=== PATIENT | male | born 1995 | race Caucasian/White ===

== ENCOUNTER 2018-09-13 20:13 | Emergency (ER) | END 2018-09-13 22:18 | disposition home or self-care (01) ==

== ENCOUNTER 2018-11-23 21:08 | Emergency (ER) | payer OTHER ==
[~2018-11-23] VITALS: Ht 167.6 cm; Wt 58.2 kg
[~2018-11-23 21:08] MED LIST: CETI10CA PO; CYCL10TA7 PO; FLUT9.9S NASAL; IBUP800T48 PO; NPH10OT LEFT EAR
[2018-11-23 21:10] VITALS: Ht 167.6 cm; Wt 58.2 kg
--- NOTE | 2018-11-24 01:03 | ERD ---
ER Documentation Chief Complaint Chief Complaint cough x 4 days HPI 23-year-old male presents here to emergency department for complaints of cough for 4 days, cough with whitish phlegm, has been complaining of chest pain when coughing. Patient does not have any fever or chills. Patient denies any sick contacts. Patient denies any blood in the Phlegm. Patient does not have any sick contacts. ROS All systems reviewed and are negative except as per history of present illness. Medications Home Meds Active Scripts Fluticasone Propionate (Flonase Allergy Relief) 9.9 Ml [place].susp, 2 SPRAY NASAL DAILY, #1 BOTTLE TO EACH NOSTRIL Prov:GRECIA TORO PA-C 09/13/18 Cetirizine Hcl* (Zyrtec*) 10 Mg Capsule, 10 MG PO DAILY, #14 TAB.CHEW Prov:GRECIA TORO PA-C 09/13/18 Neomycin/Polymyxin/Hydrocort* (Cortisporin* Otic) 10 Ml Susp, 4 DROP LEFT EAR QID for 7 Days, EA Prov:GRECIA TORO PA-C 09/13/18 Cyclobenzaprine Hcl* (Cyclobenzaprine Hcl*) 10 Mg Tablet, 10 MG PO TID, #15 TAB Prov:LUÍS BAUER PA-C 03/24/16 Ibuprofen* (Motrin*) 800 Mg Tab, 800 MG PO Q6, #30 TAB Prov:LUÍS BAUER PA-C 03/24/16 Allergies Allergies: Coded Allergies: No Known Allergy (Unverified , 10/29/14) PMhx/Soc Medical and Surgical Hx: pt denies Medical Hx, pt denies Surgical Hx History of Surgery: No Anesthesia Reaction: No Hx Neurological Disorder: No Hx Respiratory Disorders: No Hx Cardiac Disorders: No Hx Psychiatric Problems: No Hx Miscellaneous Medical Probl: No Hx Alcohol Use: No Hx Substance Use: No Hx Tobacco Use: No FmHx Family History: No diabetes, No coronary disease, No other Physical Exam Vitals Vital Signs Date Temp Pulse Resp B/P (MAP) Pulse Ox O2 O2 Flow FiO2 Time Delivery Rate 11/23/18 97.3 78 18 136/70 97 21:10 (92) Physical Exam GENERAL: The patient is well developed and appropriate for usual state of health, in no apparent distress. CHEST: Clear to auscultation bilaterally. There are no rales, wheezes or rhonchi. HEART: Regular rate and rhythm. No murmurs, clicks, rubs or gallops. No S3 or S4. ABDOMEN: Soft, nontender and nondistended. Good bowel sounds. No rebound or guarding. No gross peritonitis. No gross organomegaly or masses. No Frost sign or McBurney point tenderness. BACK: No midline or flank tenderness. EXTREMITIES: Equal pulses bilaterally. There is no peripheral clubbing, cya nosis or edema. No focal swelling or erythema. Full range of motion. Grossly neurovascularly intact. NEURO: Alert and oriented. Cranial nerves 2-12 intact. Motor strength in all 4 extremities with 5/5 strength. Sensation grossly intact. Normal speech and gait. SKIN: There is no apparent rash or petechia. The skin is warm and dry. HEMATOLOGIC AND LYMPHATIC: There is no evidence of excessive bruising or lymphedema. No gross cervical, axillary, or inguinal lymphadenopathy. Results 24 hrs PROCEDURE: Chest. CLINICAL INDICATION: Cough. TECHNIQUE: Single frontal view of the chest was obtained. COMPARISON: None. FINDINGS: The cardiac silhouette is within normal limits. The aortic arch is unremarkable. There is no focal consolidation, vascular congestion or pleural effusion. There is no pneumothorax. IMPRESSION: No evidence for active cardiopulmonary disease. .Alexis Martin MD, MD Date Time Electronically viewed and signed by .Alexis Martin MD, on 11/24/2018 02:02 .T/ CC: ANNIKA WELLER NP [phone] Procedures/MDM Medical Decision Making: Patient symptoms are most likely consistent with acute bronchitis, which viral in origin. There is low suspicion for Pneumonia at this time since patients lungs sounds are clear, patient O2 saturation is normal and patient doesnt show any respiratory distress. Patients chest xray doesnt show infiltrates or any other cardiopulmonary emergencies at this time. There is low suspicion for other cardiopulmonary emergencies at this time such as CHF, Pulmonary Embolism, Pneumothorax, Aortic Aneurysm or any other cardiopulmonary emergencies at this time. There is low suspicion for sepsis. Patient appears well and is hemodynamically stable. Fever is controlled with medicines. Disposition: Home. Condition: Stable Prescriptions: Tessalon Perles Zyrtec ibuprofen Tylenol Instructions: Patient is advised to take medications as prescribed. Patient is advised to rest. Patient advised to increase fluid intake, do humidifier at home and if possible, do salt water gargles. Patient is advised that if symptoms are worse, shortness of breath, uncontrolled fever, stridor, vomiting, worst signs and symptoms to return to emergency department immediately. Otherwise, patient is advised to follow up with primary doctor in 5-7 days. Disclaimer: Inadvertent spelling and grammatical errors are likely due to EHR/dictation software use and do not reflect on the overall quality of patient care. Also, please note that the electronic time recorded on this note does not necessarily reflect the actual time of the patient encounter. Departure Diagnosis: Primary Impression: Acute bronchitis Bronchitis organism: unspecified organism Qualified Codes: J20.9 - Acute bronchitis, unspecified Condition: Stable Patient Instructions: Bronchitis, No Antibiotic (Adult) Additional Instructions: Patient is advised to take medications as prescribed. Patient is advised to rest. Patient advised to increase fluid intake, do humidifier at home and if possible, do salt water gargles. Patient is advised that if symptoms are worse, shortness of breath, uncontrolled fever, stridor, vomiting, worst signs and symptoms to return to emergency department immediately. Otherwise, patient is advised to follow up with primary doctor in 5-7 days. ANNIKA WELLER NP Nov 24, 2018 01:03
[2018-11-24] MEDS ORDERED: BENZ-6 PO (02:07)
[2018-11-24] MEDS ORDERED: CETI10CA PO (02:07)
[2018-11-24] MEDS ORDERED: IBUP-1542 PO (02:07)
[2018-11-24 02:17] VITALS: BP 125/69; PULSE 67; RESP 18
== END 2018-11-24 02:19 | disposition home or self-care (01) ==
LOC: FTE 21:08
DX: J20.9 Acute bronchitis, unspecified (principal)
CPT/HCPCS: 71045

== ENCOUNTER 2019-01-12 14:42 | Emergency (ER) | payer OTHER ==
[~2019-01-12] VITALS: Ht 167.6 cm; Wt 59.6 kg
[~2019-01-12 14:42] MED LIST changes: +BENZ-6 PO; +IBUP-1542 PO
[2019-01-12 14:45] VITALS: BP 120/60; PULSE 70; RESP 20; Ht 167.6 cm; Wt 59.6 kg
[2019-01-12] MEDS ORDERED: IBUPROFEN 800 MG TAB PO ONE (16:30)
[2019-01-12] MEDS ORDERED: IBUP800T48 PO (16:44)
[2019-01-12] MEDS ORDERED: ALBU18HF INHALATION (16:44)
--- NOTE | 2019-01-12 16:47 | ERD ---
ER Documentation Chief Complaint Chief Complaint Complains of cough with chest wall pain x 2 days HPI Very pleasant 23-year-old male who presents with 2 days of cough and congestion and chest wall pain with coughing. The patient states that additionally he had someone sitting on his chest wall doing taekwondo. Patient is having left-sided chest wall pain only with coughing and with stretching and movement of the chest. No exertional symptoms no syncope. He denies any pleuritic pain fevers or chills. Cough is dry nonproductive. ROS All systems reviewed and are negative except as per history of present illness. Medications Home Meds Active Scripts Ibuprofen* (Motrin*) 800 Mg Tab, 800 MG PO Q6H PRN for PAIN AND OR ELEVATED TEMP, #30 TAB Prov:DELLA ROSENBAUM MD 01/12/19 Albuterol Sulfate* (Ventolin HFA*) 18 Gm Hfa.aer.ad, 2 PUFF INHALATION Q4H, #1 INHALER Prov:DELLA ROSENBAUM MD 01/12/19 Ibuprofen* (Motrin*) 600 Mg Tab, 600 MG PO Q6H PRN for PAIN AND OR ELEVATED TE MP, #30 TAB Prov:ANNIKA WELLER MECHANICAL RESEARCH ENGINEER 11/24/18 Cetirizine Hcl* (Zyrtec*) 10 Mg Capsule, 10 MG PO DAILY, #30 TAB.CHEW Prov:ANNIKA WELLER NP 11/24/18 Benzonatate* (Tessalon Perle*) 100 Mg Capsule, 100 MG PO Q8H PRN for COUGH, #30 CAP Prov:ANNIKA WELLER MECHANICAL RESEARCH ENGINEER 11/24/18 Fluticasone Propionate (Flonase Allergy Relief) 9.9 Ml [place].susp, 2 SPRAY NASAL DAILY, #1 BOTTLE TO EACH NOSTRIL Prov:GRECIA TORO PA-C 09/13/18 Cetirizine Hcl* (Zyrtec*) 10 Mg Capsule, 10 MG PO DAILY, #14 TAB.CHEW Prov:GRECIA TORO PA-C 09/13/18 Neomycin/Polymyxin/Hydrocort* (Cortisporin* Otic) 10 Ml Susp, 4 DROP LEFT EAR QID for 7 Days, EA Prov:GRECIA TORO PA-C 09/13/18 Cyclobenzaprine Hcl* (Cyclobenzaprine Hcl*) 10 Mg Tablet, 10 MG PO TID, #15 TAB Prov:LUÍS BAUER PA-C 03/24/16 Ibuprofen* (Motrin*) 800 Mg Tab, 800 MG PO Q6, #30 TAB Prov:LUÍS BAUER PA-C 03/24/16 Allergies Allergies: Coded Allergies: No Known Allergy (Unverified , 10/29/14) PMhx/Soc Medical and Surgical Hx: pt denies Medical Hx, pt denies Surgical Hx History of Surgery: No Anesthesia Reaction: No Hx Neurological Disorder: No Hx Respiratory Disorders: No Hx Cardiac Disorders: No Hx Psychiatric Problems: No Hx Miscellaneous Medical Probl: No Hx Alcohol Use: No Hx Substance Use: No Hx Tobacco Use: No Smoking Status: Never smoker FmHx Family History: No diabetes Physical Exam Vitals Vital Signs Date Temp Pulse Resp B/P (MAP) Pulse Ox O2 O2 Flow FiO2 Time Delivery Rate 01/12/19 97.9 70 20 120/60 100 14:45 (80) Physical Exam General: Well developed, well nourished, no acute distress Head: Normocephalic, atraumatic. Eyes: Pupils equally reactive, EOM intact ENT: Moist mucous membranes Neck: Supple, no lymphadenopathy Respiratory: Lungs clear bilaterally, no distress Cardiovascular: RRR, no murmurs, rubs, or gallops, slightly reproducible left- sided anterior chest wall tenderness Abdominal: Soft, non-tender, non-distended, no peritoneal signs : Deferred MSK: No edema, no unilateral swelling, 5/5 strength Neurologic: Alert and oriented, moving all extremities, normal speech, no focal weakness, no cerebellar signs Skin: No rash Psych: Normal mood Results 24 hrs Current Medications Medications Dose Sig/Francisco Start Time Status Last (Trade) Ordered Route PRN Stop Time Admin Dose Reason Admin Ibuprofen 800 mg ONCE ONCE 01/12/19 DC 01/12/19 (Motrin) PO 16:30 01/12/19 16:29 16:31 Procedures/MDM The patient's clinical presentation is very consistent with an acute viral syndrome with chest wall strain versus contusion given recent lung injury. Low concern for pneumothorax. No signs or symptoms concerning for acute coronary syndrome. The patient has no exertional symptoms no syncope therefore I do not believe an EKG is indicated at this time the patient has very reproducible musculoskeletal etiology. X-ray to rule out pneumonia and/or pneumothorax would be appropriate. The patient does not exhibit any clinical signs or symptoms concerning for serious bacterial infection or systemic illness. Based on history and clinical exam findings the patient does not appear to have evidence of pneumonia, strep pharyngitis, urinary tract infection, bacteremia, sepsis, or meningitis. For these reasons I do not believe it is necessary to obtain laboratory testing. I believe it would be appropriate for symptom control, and close outpatient primary care follow-up. Chest x-ray: I reviewed and interpreted a 1 view of the chest Mediastinum: No enlargement Cardiac silhouette: No cardiomegaly Airspace: Clear lung alexander bilaterally without evidence of pneumothorax Bones: No evidence of fracture We discussed follow up with the patient's primary care doctor within 24 to 48 hours as needed. We also discussed return to the emergency room for worsening symptoms or worsening condition. Discharge Medications: Motrin, albuterol Departure Diagnosis: Primary Impression: Chest wall pain Additional Impression: Cough Condition: Good Patient Instructions: Chest Wall Pain, Costochondritis Referrals: [facility] YOU HAVE RECEIVED A MEDICAL SCREENING EXAM AND THE RESULTS INDICATE THAT YOU DO NOT HAVE A CONDITION THAT REQUIRES URGENT TREATMENT IN THE EMERGENCY DEPARTMENT. FURTHER EVALUATION AND TREATMENT OF YOUR CONDITION CAN WAIT UNTIL YOU ARE SEEN IN YOUR DOCTORS OFFICE WITHIN THE NEXT 1-2 DAYS. IT IS YOUR RESPONSIBILITY TO MAKE AN APPOINTMENT FOR FOLOW-UP CARE. IF YOU HAVE A PRIMARY DOCTOR --you should call your primary doctor and schedule an appointment IF YOU DO NOT HAVE A PRIMARY DOCTOR YOU CAN CALL OUR PHYSICIAN REFERRAL HOTLINE AT IF YOU CAN NOT AFFORD TO SEE A PHYSICIAN YOU CAN CHOSE FROM THE FOLLOWING [facility] [address] [facility] [facility] [address] [facility] [address] [facility]. [facility] [address] [facility]. [facility] [address] [facility]. [facility]. [address] [facility]. [facility] YOU HAVE RECEIVED A MEDICAL SCREENING EXAM AND THE RESULTS INDICATE THAT YOU DO NOT HAVE A CONDITION THAT REQUIRES URGENT TREATMENT IN THE EMERGENCY DEPARTMENT. FURTHER EVALUATION AND TREATMENT OF YOUR CONDITION CAN WAIT UNTIL YOU ARE SEEN IN YOUR DOCTORS OFFICE WITHIN THE NEXT 1-2 DAYS. IT IS YOUR RESPONSIBILITY TO MAKE AN APPOINTMENT FOR FOLOW-UP CARE. IF YOU HAVE A PRIMARY DOCTOR --you should call your primary doctor and schedule and appointment IF YOU DO NOT HAVE A PRIMARY DOCTOR YOU CAN CALL OUR PHYSICIAN REFERRAL HOTLINE AT . IF YOU CAN NOT AFFORD TO SEE A PHYSICIAN YOU CAN CHOSE FROM THE FOLLOWING [facility] INSTITUTIONS: [facility] [address] [place] [address] [facility] [address] [place], [place] [id number] [place] [address] [address] [place] [address] Additional Instructions: Call your primary care doctor TOMORROW for an appointment during the next 1 WEEK.Tell the secretary receptionist that you were referred from this facility.See the doctor sooner or return here if your condition worsens before your appointment time. DELLA ROSENBAUM MD Jan 12, 2019 16:47
== END 2019-01-12 17:12 | disposition home or self-care (01) ==
LOC: E/R 14:42
DX: R07.89 Other chest pain (principal)
CPT/HCPCS: 71045